=== PATIENT | female | born 1980 | race Caucasian/White ===

== ENCOUNTER 2019-12-22 14:16 | Emergency (ER) | payer OTHER, SELFPAY ==
--- NOTE | ~2019-12-22 | XR_ITS ---
EXAMINATION: XR chest 2V EXAM DATE: 12/22/2019 14:47 INDICATION: Cough, wheezing for one month. TECHNIQUE: Frontal and lateral projections of the chest obtained and reviewed. Comparison is made to prior examination from 02/05/2016. FINDINGS: The lungs are clear. There are no pleural effusions. The cardiomediastinal silhouette is within normal limits. There is no pneumothorax suspected. The bones and soft tissues are unremarkab le. IMPRESSION: No acute cardiopulmonary findings. Reviewed, dictated and finalized at location A. [employer]
--- NOTE | 2019-12-22 14:20 | ED.URI ---
HPI - URI/Sore Throat General Chief Complaint: Upper Respiratory Infection Stated Complaint: Congestion Time Seen by Provider: 12/22/19 14:20 Source: patient and RN notes reviewed History of Present Illness HPI Narrative: Patient is a 39-year-old female presents the urgent care with complaints of shortness of breath, wheezing, chest congestion, cough. Patient states that it started approximately 1 month ago and has been getting worse. Patient states that she has been unable to fill her Symbicort for the last 6 months due to insurance reasons. Patient states she does have nebulizer solution but does not currently have a nebulizer. However, her father stated that he will pick one up tonight for her to use. Patient is also requesting a refill of her Ventolin inhaler. Denies any known fever, chest pain, nausea, vomiting. Patient appears slightly fatigued. States that prior to coming into the urgent care she took her losartan and metoprolol because she felt like her blood pressure was elevated . Patient denies any dizziness at this time. No other acute complaints. Patient aware the plan of care. Related Data Home Medications Medication Instructions Recorded Confirmed albuterol sulfate 2 inh INHALATION DAILY 12/22/19 12/22/19 budesonide-formoterol [Symbicort] 2 inh INHALATION DAILY 12/22/19 12/22/19 Allergies Allergy/AdvReac Type Severity Reaction Status Date / Time No Known Allergies Allergy Verified 12/22/19 14:18 Review of Systems Review of Systems: Narrative: CONSTITUTIONAL: Denies fever, chills, or sweats. EYES: Denies visual changes, redness, or discharge. ENT: Denies rhinorrhea, congestion, sore throat, or otalgia. CARDIOVASCULAR: Denies chest pain, palpitations, or edema. RESPIRATORY: Reports of cough, chest congestion with wheezing and difficulty breathing GASTROINTESTINAL: Denies abdominal pain, nausea, vomiting, or diarrhea. GENITOURINARY: Denies dysuria or hematuria. SKIN: Denies rash or itching. MUSCULOSKELETAL: Denies back pain, joint pain, or myalgia. NEUROLOGIC: Denies headache, numbness, or weakness. All other systems reviewed are negative, except as documented in HPI. [facility] Family History Family History (Updated 06/01/16 @ 23:21 by DOCTOR UNKNOWN) Father Patient's father is in good health Sibling Patient's sister is in good health Patient's brother is in good health Mother Family history of pancreatic cancer Patient's mother is Social History Social History Smoking status: Light tobacco smoker Alcohol intake: never Gender identity (if verbalized by the patient): Female Comments At the time of my signature, I reviewed and agree with the nursing past medical, surgical, social, and family history. There is no relevant family history pertinent to the patient complaint. Exam Narrative: Exam Narrative: GENERAL: This is a well-nourished, well-developed patient, appears slightly pale and fatigued HEAD: normocephalic, atraumatic. EYES: PERRL. Sclera clear/white. Vision is grossly intact. EARS: External ears normal, auditory canals clear and without drainage, TMs normal without perforation. Hearing grossly intact. NOSE: External nose normal with no obvious nasal discharge, nares without redness, no rhinorrhea. THROAT: Mucous membranes moist, posterior pharynx clear. NECK: Neck supple CARDIOVASCULAR: Regular rate and rhythm without murmurs, gallops, or rubs. RESPIRATORY: Inspiratory and expiratory wheezes throughout with bibasilar crackles SKIN: warm, intact with no suspicious lesions or rash, good texture and turgor. NEURO: awake, alert, and oriented to person, place and time. There were no obvious focal neurologic abnormalities. EXTREMITIES: No clubbing, cyanosis, or edema. Course Vital Signs Vital signs: Vital Signs Temperature 98.2 F 12/22/19 14:31 Pulse Rate 69 12/22/19 14:31 Respiratory Rate 18 12/22/19 14:31 Blood Pressure 95/54 L 12/22/19 14:31
[2019-12-22 14:31] VITALS: BP 95/54; PULSE 69; RESP 18; TEMP 36.8; O2SAT 99
[2019-12-22] MEDS: ALBUTEROL SULFATE NEB 2.5 MG/3 ML INH INHALATION (15:12)
[2019-12-22] MEDS: IPRATROPIUM BR 0.02% INH SOLN 0.5 MG/2.5 ML VIAL INHALATION (15:12)
[2019-12-22 15:35] VITALS: PULSE 72; RESP 16; O2SAT 99
== END 2019-12-22 15:36 | disposition home or self-care (01) ==
PROVIDERS: Emergency Provider Nurse Practitioner Family
DX: J40 Bronchitis, not specified as acute or chronic (principal); J06.9 Acute upper respiratory infection, unspecified; F17.200 Nicotine dependence, unspecified, uncomplicated
CPT/HCPCS: 71046; 94640; 99213; G0463